=== PATIENT | male | born 1985 | race Caucasian/White ===

== ENCOUNTER 2016-05-25 15:55 | Emergency (ER) | payer OTHER ==
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
--- NOTE | 2016-05-25 17:39 | Diagnostic Imaging Report ---
[facility] [address] [facility] [address] [address] ~ ~ ~ ~ Report Submission Date: May 25, 2016 5:28:38 PM HIDE DYER Patient ~ Study Name: GRIFFIN MANZANO ~ Date: May 25, 2016 5:07:34 PM HIDE DYER ~ Modality Type: CT\SR Gender: M ~ Description: CT BRAIN W/O CONTRAST : 83 ~ Institution: [facility] Physician: JILLIAN MCARTHUR MD ~ ~ ~ ~ CT brain without IV contrast Clinical history: Trauma Radiation dose DLP 689 Significant right facial fracture. Right orbital emphysema. No visible skull fractures. No evidence of intracranial bleed, acute infarct, midline shift or hydrocephalus. No visible tumor mass. Impression: Right facial bone fractures with orbital emphysema. No bleeding or acute intracranial abnormalities. No visible skull fractures ~ Electronically signed on May 25, 2016 5:28:38 PM HIDE DYER by: Yanick RODRIGUEZ
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
[2016-05-25] MEDS ORDERED: ceFAZolin SODIUM 1 GM in 0.9 % SODIUM CHLORIDE 50 ML IV ONE (18:27)
[2016-05-25] MEDS ORDERED: ONDANSETRON HCL/PF 4 MG/ 2ML VIAL IVP ONE (18:30)
[2016-05-25] MEDS ORDERED: KETOROLAC TROMETHAMINE 30 MG/1ML VIAL IVP ONE (18:31)
[2016-05-25] MEDS ORDERED: ONDANSETRON HCL/PF 4 MG/ 2ML VIAL ONE (18:32)
[2016-05-25] MEDS ORDERED: KETOROLAC TROMETHAMINE 30 MG/1ML VIAL ONE (18:32)
[2016-05-25 19:04] VITALS: BP 144/90
[2016-05-26 05:40] LABS: APPEARANCE,URINE CLEAR (CLEAR); COLOR,URINE YELLOW (YELLOW); OCCULT BLOOD,URINE NEGATIVE (NEGATIVE); UROBILINOGEN URINE 0.2 Eu (0.2-1.0)
== END 2016-05-25 19:00 | disposition short-term general hospital (02) ==
LOC: ED 15:55
DX: S02.80XA Fracture of other specified skull and facial bones, unspecified side, initial encounter for closed fracture (principal); V49.9XXA Car occupant (driver) (passenger) injured in unspecified traffic accident, initial encounter; Y92.414 Local residential or business street as the place of occurrence of the external cause
CPT/HCPCS: 70450; 70486; 81002; J0690; J1885; J2405; 96365; 96375; 99283; 99284; S1016